=== PATIENT | female | born 1980 | race Caucasian/White ===

== ENCOUNTER → 2022-04-07 15:37 | Outpatient (BNVA) | payer BC, SELFPAY | PROVIDERS: PCP Family Medicine; Referring Provider Family Medicine; Visit Provider Internal Medicine | DX: E06.9 Thyroiditis, unspecified (principal) | CPT/HCPCS: 36415; 83516; 84439; 84443; 84480; 86376; 86800 ==

== ENCOUNTER 2022-08-14 12:37 | Outpatient (CLI) | payer OTHER, SELFPAY ==
[2022-08-14 14:14] LABS: Free T4 Free Thyroxine 1.22 ng/dL (0.82-1.77)
[2022-08-15 09:51] LABS: T3 Total 181 ng/dL (76-181)
== END 2022-08-14 12:38 | disposition home or self-care (01) ==
PROVIDERS: PCP Family Medicine; Visit Provider Internal Medicine
DX: E06.9 Thyroiditis, unspecified (principal)
CPT/HCPCS: 36415; 84439; 84443; 84480

== ENCOUNTER 2022-10-20 10:06 | Outpatient (CLI) | payer OTHER, SELFPAY ==
[2022-10-20 11:13] LABS: Free T4 Free Thyroxine 1.22 ng/dL (0.82-1.77); Thyroid Stimulating Hormone 5.21 uIU/mL (0.27-4.20)
[2022-10-21 11:34] LABS: T3 Total 174 ng/dL (76-181)
== END 2022-10-20 10:07 | disposition home or self-care (01) ==
PROVIDERS: PCP Family Medicine; Visit Provider Internal Medicine
DX: E07.9 Disorder of thyroid, unspecified (principal); E06.9 Thyroiditis, unspecified; R79.89 Other specified abnormal findings of blood chemistry
CPT/HCPCS: 36415; 84439; 84443; 84480

== ENCOUNTER 2022-12-26 10:03 | Outpatient (CLI) | payer OTHER, SELFPAY ==
[2022-12-26 11:41] LABS: Free T4 Free Thyroxine 1.41 ng/dL (0.82-1.77); Thyroid Stimulating Hormone 3.82 uIU/mL (0.27-4.20)
== END 2022-12-26 10:04 | disposition home or self-care (01) ==
LOC: LAB 10:06
PROVIDERS: PCP Family Medicine; Visit Provider Internal Medicine
DX: R79.89 Other specified abnormal findings of blood chemistry (principal)
CPT/HCPCS: 36415; 84439; 84443

== ENCOUNTER 2023-06-26 08:03 | Outpatient (CLI) | payer OTHER, SELFPAY ==
[2023-06-26 09:06] LABS: Thyroid Stimulating Hormone 2.16 uIU/mL (0.27-4.20)
== END 2023-06-26 08:04 | disposition home or self-care (01) ==
LOC: LAB 08:07
PROVIDERS: PCP Family Medicine; Visit Provider Internal Medicine
DX: E07.9 Disorder of thyroid, unspecified (principal); R79.89 Other specified abnormal findings of blood chemistry; E03.8 Other specified hypothyroidism; K59.00 Constipation, unspecified; R63.5 Abnormal weight gain
CPT/HCPCS: 36415; 84439; 84443

== ENCOUNTER 2024-01-01 08:07 | Outpatient (CLI) | payer OTHER, SELFPAY ==
[2024-01-01 09:09] LABS: Free T4 Free Thyroxine 1.23 ng/dL (0.82-1.77); Thyroid Stimulating Hormone 3.06 uIU/mL (0.27-4.20)
== END 2024-01-01 08:08 | disposition home or self-care (01) ==
LOC: LAB 08:08
PROVIDERS: PCP Family Medicine; Visit Provider Internal Medicine
DX: E07.9 Disorder of thyroid, unspecified (principal); R79.89 Other specified abnormal findings of blood chemistry; E03.8 Other specified hypothyroidism
CPT/HCPCS: 36415; 84439; 84443

== ENCOUNTER 2024-07-26 10:24 | Outpatient (CLI) | payer OTHER, SELFPAY ==
[2024-07-26 11:17] LABS: Free T4 Free Thyroxine 1.22 ng/dL (0.82-1.77); Thyroid Stimulating Hormone 2.79 uIU/mL (0.27-4.20)
== END 2024-07-26 10:25 | disposition home or self-care (01) ==
PROVIDERS: PCP Family Medicine; Visit Provider Internal Medicine
DX: E07.9 Disorder of thyroid, unspecified (principal); R79.89 Other specified abnormal findings of blood chemistry; E03.8 Other specified hypothyroidism
CPT/HCPCS: 36415; 84439; 84443